=== PATIENT | male | born 1955 | race Caucasian/White ===

== ENCOUNTER → 2018-06-26 08:54 | Outpatient (CLI) | payer BC, SELFPAY ==
[2018-06-26 09:00] LABS: Bacteria 0 SEEN /hpf (None Seen); Mucous, Urine 0 SEEN /hpf (<or=2+); Red Blood Cells-Urine 0 SEEN /hpf (0-5); Squamous Epithelial Cells - UA 0 SEEN /hpf (0-5)
[2018-06-26 10:15] LABS: Color, Urine Yellow (Yellow); Glucose, Dipstick Normal (Normal); Ketone-Dipstick Negative (Negative); Leukocyte Esterase-Dipstick 25 /ul (Negative); Nitrite-Dipstick Negative (Negative); Occult Blood-Urine Negative /ul (Negative); Protein-Dipstick Negative (Negative); Urine Bilirubin Dipstick Negative (Negative); Urine Clarity Clear (Clear); Urine Urobilinogen 1 mg/dl (Normal)
[2018-06-26 10:18] LABS: Absolute Lymphocyte Count 1.53 X10^3/ul (0.83-4.51); Absolute Neutrophil Count 2.6 X10^3/uL (2.0-7.7); Basophil# 0.02 X10^3/uL; Basophil% 0.4 % (0-1); Eosinophil# 0.19 X10^3/uL; Eosinophils% 3.8 % (0-5); Hematocrit 42.1 % (40-54); Hemoglobin 14.4 g/dl (13.0-16.5); Lymphocyte # 1.53 X10^3/ul (4.0); Lymphocyte % 30.9 % (19-41); Mean Corp Hgb Conc 34.2 g/gl (32-36); Mean Corpuscular Hgb 31.9 pg (27.0-32.0); Mean Corpuscular Volume 93.3 fL (80-94); Mean Platelet Vol. 10.2 fl (6.2-12.0); Monocyte# 0.58 X10^3/uL; Monocyte% 11.7 % (0-10); Neutrophil # 2.62 X10^3/uL (2.7-7.7); Platelet Count 218 K/mm3 (150-450); RBC Distribution Width SD 43.4 fl (35.1-43.9); Red Blood Count 4.51 M/mm3 (4.6-6.2)
[2018-06-26 10:19] LABS: POSITIVE COUNT NO; POSITIVE DIFFERENTIAL NO; POSITIVE MORPHOLOGY NO
[2018-06-26 10:39] LABS: White Blood Cells 0-5 SEEN /hpf (0-5)
[2018-06-26 10:41] LABS: ALB/GLOB Ratio 1.4 RATIO (0.9-2.4); AST(SGOT) 18 U/L (15-37); Alanine Aminotransfer ALT/SGPT 25 U/L (16-61); Alkaline Phosphatase 46 U/L (45-117); Anion Gap 6 (5-15); BUN 24 mg/dL (7-18); BUN/Creat Ratio 27.2 RATIO (10-20); Calcium,Total 8.9 mg/dL (8.5-10.1); Chloride 106 mmol/L (98-107); Creatinine, Serum 0.88 mg/dL (0.70-1.30); EST Glomerular Filtration Rate 93 mL/min (>60); Est Glom Filt Rate - Afr Amer 113 mL/min (>60); Globulin 2.8 g/dL (2.2-4.2); Glucose 91 mg/dL (74-106); Potassium 4.9 mmol/L (3.5-5.1); Protein, Total 6.8 g/dL (6.4-8.2); Sodium Level 139 mmol/L (136-145)
--- OUTSIDE RECORDS SUMMARY | 2018-08-31 00:23 | XMS RPT_ITS ---
:1955 Author Organization [facility] Care Team Providers Name Role Phone Edwar Campbell Attending Unavailable Edwar Campbell Primary Care Unavailable PROBLEMS PROBLEMS No Problem Records FoundPROCEDURES PROCEDURES No Procedure Records FoundRESULTS RESULTS URINALYSIS, COMPLETE Collected: 06/26/2018 Status: F Source: [place] 8:59 AM [facility] [place] Order Comment: How was Urine Obtained? CLEAN CATCH TYPE CODE TESTS RESULT OUT OF RANGE REFERENCE UNITS LAB L400.3000 Yellow COLOR Normal Yellow LAB L400.3050 Clear Normal CLARITY Clear LAB L400.3200 Normal mg/dl Normal GLUCOSE, UR Normal LAB L400.3300 Negative mg/dL Normal BILIRUBIN URINE Negative LAB L400.3400 Negative mg/dl Normal KETONE UR Negative LAB L400.3465 1.002-1.030 Normal SP.GR. DIPSTX 1.010 LAB L400.3550 5.0 - 8.0 pH UR Normal 7.0 LAB L400.3600 Negative mg/dl PROT Normal DIPSTX Negative LAB L400.3700 Normal mg/dl High 1 UROBILI LAB L400.3750 Negative Normal NITRITE UR Negative LAB L400.3780 Negative /ul Normal OCCULT BLOOD-UR Negative LAB L400.3800 Negative /ul High LEUK 25 ESTERASE LAB L400.4050 0-5 /hpf WBC Normal 0-5 SEEN LAB L400.4100 0-5 /hpf 0 Normal RBC-UA SEEN LAB L400.4150 0-5 /hpf SQUAM 0 Normal EPI SEEN LAB L400.4300 None Seen /hpf 0 Normal BACTERIA SEEN LAB L400.4350 <or=2+ /hpf 0 Normal MUCUS, URINE SEEN Performed By: #### L400.0001 #### [facility] [address] [place], [place], [address] CBC W/DIFF, AUTOMATED Collected: 06/26/2018 Status: F Source: [place] 8:59 AM [facility] [place] TYPE CODE TESTS RESULT OUT OF RANGE REFERENCE UNITS LAB L100.1000 4.4-11.0 K/mm3 Normal WBC 5.0 LAB L100.1200 4.6-6.2 M/mm3 Low RBC 4.51 LAB L100.1300 13.0-16.5 g/dl Normal HGB 14.4 LAB L100.1400 40-54 % Normal HCT 42.1 LAB L100.1500 80-94 fL Normal MCV 93.3 LAB L100.1600 27.0-32.0 pg Normal MCH 31.9 LAB L100.1700 32-36 g/gl Normal MCHC 34.2 LAB L100.1810 11.6-14.6 % Normal RDW CV 13.0 LAB L100.1820 35.1-43.9 fl Normal RDW SD 43.4 LAB L100.1900 150-450 K/mm3 Normal PLT 218 LAB L100.2000 6.2-12.0 fl Normal MPV 10.2 LAB L100.2100 47-70 % Normal NEUT% 53.0 LAB L100.2200 19-41 % Normal LY% 30.9 LAB L100.2300 0-10 % High MONO% 11.7 LAB L100.2400 0-5 % Normal EO% 3.8 LAB L100.2500 0-1 % Normal BASO% 0.4 LAB L100.2550 0.0-0.9 % Normal IM GRAN % 0.200 Result Comment: IG% - Immature Granulocytes (promyelocytes, myelocytes and metamyelocytes) > 1% indicates that a LEFT SHIFT is Present. LAB L100.2620 2.0-7.7 X10 3/uL Normal Absolute Neut 2.6 LAB L100.2720 0.83-4.51 X10 3/ul Normal Absolute Lymph 1.53 Performed By: #### L100.0100, L500.4050 #### [facility] [address] [place], [place], [address] COMPREHENSIVE METABOLIC Collected: 06/26/2018 Status: F Source: [facility] 8:59 AM [facility] [place] TYPE CODE TESTS RESULT OUT OF RANGE REFERENCE UNITS LAB L501.0100 74-106 mg/dL Normal GLU 91 Result Comment: Please note revised GLUCOSE reference range effective 2017. LAB L501.1000 7-18 mg/dL High BUN 24 LAB L501.1100 0.70-1.30 mg/dL Normal CREAT,SERUM 0.88 Result Comment: The validity of the calculated GFR AND GFRAA in patients over 70 years has not been determined. Clinical correlation is essential. LAB L501.1110 >60 mL/min Normal EST GFR 93 Result Comment: Non- GFR Calc LAB L501.1115 >60 mL/min Normal EST GFR - AA 113 Result Comment: GFR Calc LAB L501.1300 10-20 RATIO High BUN/CRE 27.2 LAB L501.1500 6.4-8.2 g/dL T Normal PROT 6.8 LAB L501.1800 3.2-5.0 g/dL Normal ALB 4.0 LAB L501.1950 2.2-4.2 g/dL Normal GLOB 2.8 LAB L501.2000 0.9-2.4 RATIO Normal A/G 1.4 LAB L501.2200 8.5-10.1 mg/dL CA Normal 8.9 LAB L501.4100 15-37 U/L Normal AST 18 LAB L501.4305 45-117 U/L Normal ALK P 46 LAB L501.4405 16-61 U/L Normal ALT 25 LAB L501.4600 0.20-1.00 mg/dL T Normal BILI 0.40 LAB L501.5300 136-145 mmol/L NA Normal 139 LAB L501.5600 3.5-5.1 mmol/L K Normal 4.9 LAB L501.5900 98-107 mmol/L CL Normal 106 LAB L501.6100 21.0-32.0 mmol/L Normal CO2 27.0 LAB L501.6200 5-15 Normal GAP 6 Performed By: #### L100.0100, L500.4050 #### [facility] [address] [place], [address] ALLERGIES ALLERGIES No Allergies Records FoundENCOUNTERS ENCOUNTERS ADMIT/DISCHARGE ACCOUNT ADMITTING ENCOUNTER LOCATION SOURCE NUMBER CLASS 06/26/2018 [id number] Ambulatory [place] [address] [facility] ing:MFPLAB Repository PAYERS PAYERS ENCOUNTER GUARANTOR PAYER SUBSCRIBER SOURCE 06/26/2018 JOSEPH [id number] Primary JOSEPH KAUROB: Efren PEREZ Insurance:[place] [id number] Number: [facility] [id number]: [phone]) [id number] Repository [phone] () Date:[id number] [id number] [place] [id number]: 06/26/2018 Secondary NOT GIVENUNK Efren Insurance:SELF PAY [facility] Number: Effective Repository Date:2018-06-26
== END ==
PROVIDERS: Family Provider Family Medicine; PCP Family Medicine; Visit Provider Family Medicine
DX: Z00.00 Encounter for general adult medical examination without abnormal findings (principal)
CPT/HCPCS: 36415; 80053; 81001; 85025

== ENCOUNTER → 2020-02-23 14:34 | Outpatient (CLI) | payer BC, SELFPAY ==
[2020-02-23 17:53] LABS: Absolute Neutrophil Count 3.8 X10^3/uL (2.0-7.7); Basophil# 0.04 X10^3/uL; Basophil% 0.6 % (0-1); Eosinophil# 0.18 X10^3/uL; Eosinophils% 2.9 % (0-5); Hematocrit 40.5 % (40-54); Hemoglobin 13.5 g/dL (13.0-16.5); Lymphocyte % 25.5 % (19-41); Mean Corp Hgb Conc 33.3 g/dL (32-36); Mean Corpuscular Hgb 31.5 pg (27.0-32.0); Mean Corpuscular Volume 94.6 fL (80-94); Mean Platelet Vol. 9.6 fl (6.2-12.0); Monocyte# 0.66 X10^3/uL; Monocyte% 10.5 % (0-10); NRBC Flagged by Analyzer 0 % (0-5); Neutrophil # 3.78 X10^3/uL (2.7-7.7); Neutrophil % 60.2 % (47-70); Platelet Count 233 K/mm3 (150-450); RBC Distribution Width CV 13.2 % (11.6-14.6); RBC Distribution Width SD 45.9 fl (35.1-43.9); Red Blood Count 4.28 M/mm3 (4.6-6.2); White Blood Count 6.3 K/mm3 (4.4-11.0)
[2020-02-23 18:29] LABS: ALB/GLOB Ratio 1.2 RATIO (0.9-2.4); AST(SGOT) 20 U/L (15-37); Alanine Aminotransfer ALT/SGPT 26 U/L (16-61); Albumin, Serum 3.8 g/dL (3.2-5.0); Alkaline Phosphatase 41 U/L (45-117); Anion Gap 8 (5-15); BUN 19 mg/dL (7-18); BUN/Creat Ratio 20.3 RATIO (10-20); Calcium,Total 8.8 mg/dL (8.5-10.1); Chloride 106 mmol/L (98-107); Cholesterol 239 mg/dL (200); Creatinine, Serum 0.93 mg/dL (0.70-1.30); EST Glomerular Filtration Rate 87 mL/min (>60); Est Glom Filt Rate - Afr Amer 105 mL/min (>60); Globulin 3.2 g/dL (2.2-4.2); Glucose 89 mg/dL (74-106); High Density Lipoprotein 87 mg/dL; PSA,Total - Annual Screen 1.54 ng/mL (0.00-4.00); Potassium 3.9 mmol/L (3.5-5.1); Sodium Level 140 mmol/L (136-145); Triglycerides 69 mg/dL; Very Low Density Lipoprotein 14 mg/dL (5-40)
== END ==
PROVIDERS: PCP Family Medicine; Referring Provider Family Medicine; Visit Provider Family Medicine
DX: Z00.00 Encounter for general adult medical examination without abnormal findings (principal); Z12.5 Encounter for screening for malignant neoplasm of prostate
CPT/HCPCS: 36415; 80053; 80061; 84153; 85025; G0103

== ENCOUNTER → 2020-03-02 15:38 | Outpatient (CLI) | payer BC, SELFPAY ==
--- NOTE | 2020-03-02 15:42 | CT_ITS ---
STUDY: LOW DOSE CT LUNG CANCER SCREENING REASON FOR EXAM: Male, 64 years old. An cancer screening. 40 pack-year history. RADIATION DOSAGE (If Supplied By Facility): CTDIvol = ( 2.55 ) mGy, DLP = ( 85.19 ) mGycm TECHNIQUE: No contrast was administered. Low dose technique was utilized (average mAS-38 and kVp 120). 1.25 mm axial source images with a slice interval of 1.25-mm were reconstructed in lung windows. 2.5 mm axial source images with a slice interval of 2.5-mm were reconstructed in lung windows. 5.0 mm axial source images with a slice interval of 5.0-mm were reconstructed in soft tissue windows. Nodule measured using lung windows on PACS and/or independent workstation with automated measurement of minimum and maximum diameter. Nodule measurement reported as average diameter rounded to the nearest whole number. Growth is defined as an increase ins size of greater than 1.5 mm. COMPARISON: None. NODULES: Total lung nodules (excluding granulomas): 0 Emphysema: None Endobronchial lesion: None Aorta: Minimal atherosclerotic changes of the aortic arch without aneurysm. Coronary arteries: Mild coronary artery calcifications. Heart: Normal Pulmonary artery: Normal Mediastinal nodes: None Other chest and abdominal findings: Minimal degenerative changes are lower thoracic spine. CT/Low Dose CT Lung Screening IMPRESSION: Lung-RADS category 1 - Continue annual screening with LDCT in 12 months. IMPORTANT NOTES FOR USE: ACR Lung-RADS Version 1.0 Assessment Categories Release Date: October 06, 2013 Category: Coded 0-4 bases on nodule(s) with highest degree of suspicion. Negative screen is defined as categories 1 and 2; a positive screen is defined as categories 3 and 4. Category 3 and 4A nodules that are unchanged on interval CT should be coded as category 2, and individuals returned to screening in 12 months. Category 4X: Category 3 or 4 nodules with additional imaging findings that increase the suspicion of lung cancer, such as spiculation, GGN that doubles in size in 1 year, enlarged lymph notes, etc. Category Modifiers: S (significant finding unrelated to lung cancer) and C (prior history of treated lung cancer) may be added to the 0-4 Lung-RADS Electronically Signed: Lew Mcclain DO at 22:56 EDT Tel [phone], Service support ,
== END ==
PROVIDERS: PCP Family Medicine; Referring Provider Family Medicine; Visit Provider Family Medicine
DX: Z12.2 Encounter for screening for malignant neoplasm of respiratory organs (principal); Z87.891 Personal history of nicotine dependence
CPT/HCPCS: G0297

== ENCOUNTER → 2020-04-20 06:24 | Outpatient (CLI) | payer BC, SELFPAY ==
[2020-04-01 15:04] VITALS: BMI 26.7
--- NOTE | 2020-04-20 08:06 | STRESSREP ---
Stress Test Report Date: Procedure: Exercise tolerance test/imaging study Indications: Family history of premature CAD/sudden cardiac Consent: Per the patient Procedure: The patient exercised on a Jeffrey protocol for 10 minutes and 30 seconds completing Stage III and 1 minute and 30 seconds of Stage IV achieving a peak heart rate of 141 bpm (89% predicted maximal heart rate) with a peak blood pressure 152/80 mmHg and a peak MET capacity of 12 METs. The baseline ECG demonstrated sinus bradycardia. The peak exercise ECG demonstrated no obvious ECG changes. There were no cardiac dysrhythmias pretest, during exercise, or recovery. The functional capacity was considered good. There was no complaint of chest discomfort during exercise or recovery. The examination was discontinued secondary to dyspnea. Impression: 1. Technically adequate (percent predicted maximal heart rate greater than 85%) exercise tolerance test 2. Peak exercise ECG with no obvious ECG changes 3. There were no cardiac dysrhythmias pretest, during exercise, or recovery 4. Nuclear images pending Myocardial perfusion imaging study: Technique: The patient was injected with 11.2 mCi of technetium 99m Cardiolite and subsequently rest SPECT Cardiolite nuclear imaging was obtained in the horizontal long, vertical long, and short axis views. The patient exercised on a Jeffrey protocol for 10 minutes and 30 seconds completing Stage III and 1 minute and 30 seconds of Stage IV achieving a peak heart rate of 141 bpm (89% predicted maximal heart rate) with a peak blood pressure 152/80 mmHg and a peak MET capacity of 12 METs. The patient was injected with 33.7 mCi of technetium 99m Cardiolite and subsequently stress SPECT Cardiolite nuclear imaging was obtained in the horizontal long, vertical long, and short axis views. A gated Cardiolite study at peak stress was obtained. Interpretation: Rest and stress SPECT Cardiolite nuclear imaging status post realignment, normalization, and attenuation correction, demonstrates the appearance of relative uniform tracer uptake and myocardial perfusion appearing within normal limits. There is end systolic thickening and brightening. The gated Cardiolite study demonstrates myocardial thickening and inward wall motion. The reported LVEF is 60%. Impression: 1. Rest and stress SPECT Cardiolite nuclear imaging demonstrate relative uniform tracer uptake and myocardial perfusion appearing within normal limits. 2. The gated Cardiolite study reports an LVEF of 60%. This note was generated with [employer] software. It may contain incorrect words, spelling, and punctuation that were not noted in checking the note before signing.
== END ==
PROVIDERS: PCP Family Medicine; Referring Provider Internal Medicine Cardiovascular Disease; Visit Provider Internal Medicine Cardiovascular Disease
DX: R94.31 Abnormal electrocardiogram [ECG] [EKG] (principal); E78.5 Hyperlipidemia, unspecified; Z82.49 Family history of ischemic heart disease and other diseases of the circulatory system
CPT/HCPCS: 78452; 93017; A9500; A4216

== ENCOUNTER → 2022-03-01 | Outpatient (CLI) | payer BC, SELFPAY ==
[2022-03-01 12:41] LABS: Absolute Lymphocyte Count 1.17 X10^3/uL (0.83-4.51); Absolute Neutrophil Count 2.6 X10^3/uL (2.0-7.7); Basophil# 0.03 X10^3/uL; Basophil% 0.7 % (0-1); Eosinophil# 0.09 X10^3/uL; Hematocrit 42.6 % (40-54); Hemoglobin 14.5 g/dL (13.0-16.5); Lymphocyte # 1.17 X10^3/ul (0.83-4.51); Lymphocyte % 26.2 % (19-41); Mean Corpuscular Hgb 32.4 pg (27.0-32.0); Mean Corpuscular Volume 95.1 fL (80-94); Monocyte# 0.55 X10^3/uL; Monocyte% 12.3 % (0-10); NRBC Flagged by Analyzer 0 % (0-5); Neutrophil # 2.61 X10^3/uL (2.7-7.7); Neutrophil % 58.4 % (47-70); Platelet Count 210 K/mm3 (150-450); RBC Distribution Width CV 13.5 % (11.6-14.6); RBC Distribution Width SD 47.7 fl (35.1-43.9); Red Blood Count 4.48 M/mm3 (4.6-6.2); White Blood Count 4.5 K/mm3 (4.4-11.0)
[2022-03-01 13:09] LABS: ALB/GLOB Ratio 1.1 RATIO (0.9-2.4); AST(SGOT) 25 U/L (15-37); Alanine Aminotransfer ALT/SGPT 33 U/L (16-61); Albumin, Serum 3.7 g/dL (3.2-5.0); Alkaline Phosphatase 41 U/L (45-117); Anion Gap 7 (5-15); BUN 24 mg/dL (7-18); BUN/Creat Ratio 24.5 RATIO (10-20); Calcium,Total 8.8 mg/dL (8.5-10.1); Chloride 107 mmol/L (98-107); Cholesterol 238 mg/dL (200); Creatinine, Serum 0.98 mg/dL (0.70-1.30); EST Glomerular Filtration Rate 82 mL/min (>60); Est Glom Filt Rate - Afr Amer 99 mL/min (>60); Globulin 3.5 g/dL (2.2-4.2); Glucose 96 mg/dL (74-106); High Density Lipoprotein 71 mg/dL; PSA,Total - Annual Screen 1.22 ng/mL (0.00-4.00); Potassium 4.3 mmol/L (3.5-5.1); Protein, Total 7.2 g/dL (6.4-8.2); Sodium Level 140 mmol/L (136-145); Triglycerides 72 mg/dL; Very Low Density Lipoprotein 14 mg/dL (5-40)
== END | disposition home or self-care (01) ==
PROVIDERS: PCP Family Medicine; Referring Provider Family Medicine; Visit Provider Nurse Practitioner Family
DX: Z13.1 Encounter for screening for diabetes mellitus (principal); Z13.220 Encounter for screening for lipoid disorders; Z80.9 Family history of malignant neoplasm, unspecified; Z12.5 Encounter for screening for malignant neoplasm of prostate
CPT/HCPCS: 36415; 80053; 80061; 84153; 85025; G0103

== ENCOUNTER → 2023-08-17 | Outpatient (CLI) | payer BC, SELFPAY ==
--- OUTSIDE RECORDS SUMMARY | 2023-08-17 15:26 | XMS RPT_ITS | CCD ---
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 Name Role Phone ALEJO OSBORNE Unavailable Unavailable ALEJO OSBORNE Unavailable Unavailable WOOD FIGUEROA (VAUGHN) Unavailable Unavailable Problems Problem Classification Problem Date Documented Da te Episodic/Chronic Unclassified (1 source) Encounter for screening for malignant neoplasm of colon; Translations: [Encounter for screening for malignant neoplasm of colon] Onset: 03-29-2017 Episodic Results Test Name Value Interpretation Reference Range Facil ity Encounters Encounter Date Encounter Type Care Provider Facility Start: 03-29-2017 End: 03-29-2017 Ambulatory ALEJO OSBORNE [facility] Summary Purpose Family History No Family History Records Found Advance Directives No Advanced Directives Records Found Additional Source Comments (unrecognized sect ion and content) No Status Records Found INFORMATION SOURCE (unrecogn ized section and content) FOR RECORDS PERTAINING TO PATIENTS WHO ARE OR HAVE BEEN ENROLLED IN A CHEMICAL DEPENDENCY/SUBSTANCEABUSE PROGRAM, SOME INFORMATION MAY BE OMITTED. This clinical summary was aggregated from multiple sources. Caution should be exercised in using it in the provision of clinical care. This summary normalizes information from multiple sources, and as a consequence, information in this document may materially change the coding, format and clinical context of patient data. In addition, data may be omitted in some cases. CLINICAL DECISIONS SHOULD BE BASED ON THE PRIMARY CLINICAL RECORDS. [facility]. provides no warranty or guarantee of the accuracy or completeness of information in this document.
[2023-08-17 17:37] LABS: Absolute Lymphocyte Count 1.64 X10^3/uL (0.83-4.51); Absolute Neutrophil Count 3.1 X10^3/uL (2.0-7.7); Basophil# 0.03 X10^3/uL; Basophil% 0.6 % (0-1); Eosinophil# 0.11 X10^3/uL; Hematocrit 42.3 % (40-54); Hemoglobin 13.8 g/dL (13.0-16.5); Lymphocyte # 1.64 X10^3/ul (0.83-4.51); Lymphocyte % 30.5 % (19-41); Mean Corp Hgb Conc 32.6 g/dL (32-36); Mean Corpuscular Hgb 31.2 pg (27.0-32.0); Mean Corpuscular Volume 95.5 fL (80-94); Monocyte# 0.52 X10^3/uL; Monocyte% 9.7 % (0-10); NRBC Flagged by Analyzer 0 % (0-5); Neutrophil # 3.07 X10^3/uL (2.7-7.7); Platelet Count 224 K/mm3 (150-450); RBC Distribution Width CV 12.8 % (11.6-14.6); RBC Distribution Width SD 44.6 fl (35.1-43.9); Red Blood Count 4.43 M/mm3 (4.6-6.2); White Blood Count 5.4 K/mm3 (4.4-11.0)
[2023-08-17 18:22] LABS: ALB/GLOB Ratio 1.3 RATIO (0.9-2.4); AST(SGOT) 25 U/L (15-37); Alanine Aminotransfer ALT/SGPT 28 U/L (16-61); Albumin, Serum 4.1 g/dL (3.2-5.0); Alkaline Phosphatase 44 U/L (45-117); Anion Gap 7 (5-15); BUN 20 mg/dL (7-18); BUN/Creat Ratio 21.4 RATIO (10-20); Calcium,Total 9.2 mg/dL (8.5-10.1); Chloride 106 mmol/L (98-107); Cholesterol 225 mg/dL (200); Creatinine, Serum 0.93 mg/dL (0.70-1.30); EST Glomerular Filtration Rate 86 mL/min (>60); Est Glom Filt Rate - Afr Amer 104 mL/min (>60); Globulin 3.2 g/dL (2.2-4.2); Glucose 91 mg/dL (74-106); High Density Lipoprotein 73 mg/dL; PSA,Total - Annual Screen 2.03 ng/mL (0.00-4.00); Potassium 3.9 mmol/L (3.5-5.1); Protein, Total 7.3 g/dL (6.4-8.2); Sodium Level 140 mmol/L (136-145); Triglycerides 78 mg/dL; Very Low Density Lipoprotein 16 mg/dL (5-40)
== END | disposition home or self-care (01) ==
LOC: MFPLAB 14:27
PROVIDERS: PCP Family Medicine; Visit Provider Family Medicine
DX: Z13.220 Encounter for screening for lipoid disorders (principal); Z12.5 Encounter for screening for malignant neoplasm of prostate
CPT/HCPCS: 36415; 80053; 80061; 84153; 85025; G0103

== ENCOUNTER → 2025-02-19 | Outpatient (CLI) | payer BC, SELFPAY ==
--- OUTSIDE RECORDS SUMMARY | 2025-02-19 06:43 | XMS RPT_ITS | CCD ---
Author Organization [facility] Care Team Providers Care Home [facility] Supervisor Name Role Phone LUCERO SARABIA Unavailable Unavailable LUCERO SARABIA Unavailable Unavailable WOOD FIGUEROA (VAUGHN) Unavailable Unavailable Edwar Campbell Attending Unavailable Edwar Campbell Primary Care Unavailable Problems Problem Classification Problem Date Documented Da te Episodic/Chronic Residual codes; unclassified (2 sources) Family history of cardiac disorder; Translations: [Family history of ischemic heart disease and other diseases of the circulatory system] 03-30-2020 Episodic Unclassified (2 sources) Encounter for screening for malignant neoplasm of colon; Translations: [Encounter for screening for lipoid disorders] Onset: 03-29-2017 Episodic Results Test Name Value Interpretation Reference Range Facility Absolute lymphocyte countOrd ered By: Edwar Campbell on 08-17-2023 Lymphocytes Auto (Unsp spec) [#/Vol] 1.64 10*3/uL 0.83-4.51 [facility] Automated lymphocyte count a s percentage of total leukocytesOrdered By: Edwar Campbell on 08-17-2023 Lymphocytes/100 WBC Auto (Unsp spec) 30.5 % 19-41 [facility] Basophil percentageOrdered B y: Edwar Campbell on 08-17-2023 Basophils/100 WBC (Bld) 0.6 % 0-1 [facility] Bilirubin [Mass/Vol] 0.50 mg/dL 0.20-1.00 [facility] Comment on above: For patients on eltr ombopag therapy, use of Dimension [place] TBIL is not recommended. Chloride [Moles/Vol] 106 mmol/L 98-107 [facility] Cholesterol [Mass/Vol] 225 mg/dL <200 [facility] Comment on above: <200 mg/dL Desirable 200-240 mg/dL Borderline >240 mg/dL High Risk Eosinophils/100 WBC (Bld) 2.0 % 0-5 [facility] Glucose [Mass/Vol] 91 mg/dL 74-106 [facility] Hemoglobin (Bld) [Mass/Vol] 13.8 g/dL 13.0-16.5 [facility] Monocytes/100 WBC (Bld) 9.7 % 0-10 [facility] Neutrophils (Bld) [#/Vol] 3.1 10*3/uL 2.0-7.7 [facility] Neutrophils/100 WBC (Bld) 57.0 % 47-70 [facility] Potassium [Moles/Vol] 3.9 mmol/L 3.5-5.1 [facility] Protein [Mass/Vol] 7.3 g/dL 6.4-8.2 [facility] Sodium [Moles/Vol] 140 mmol/L 136-145 [facility] Triglyceride [Mass/Vol] 78 mg/dL <199 [facility] Comment on above: The drugs N-Acetylcy steine and Metamizole may falsely depress this assay.Serum Triglycerides Reference Interval Normal <150 mg/dL Borderline high 150 - 199 mg/dL High 200 - 499 mg/dL Very High > or = 500 mg/dL WBC (Bld) [#/Vol] 5.4 10*3/uL 4.4-11.0 [facility] CBC W/Diff, Automatedon 03-0 -2023 Absolute Lymph 1.64 X10 3/uL Normal 0.83-4.51 [facility] Comment on above: Order Comment: Order Date: 08/17/23 Order Info: [id number] - CBCD Performed By: #### L 500.4050, L501.9910, L500.4100, L100.0100 #### [facility] [address] [place], [place], [id number] Absolute Neut 3.1 X10 3/uL Normal 2.0-7.7 [facility] Comment on above: Order Comment: Order Date: 08/17/23 Order Info: [id number] - CBCD Performed By: #### L 500.4050, L501.9910, L500.4100, L100.0100 #### [facility] [address] [place], [address] Basophils/100 WBC (Bld) 0.6 % Normal 0-1 [facility] Comment on above: Order Comment: Order Date: 08/17/23 Order Info: 0184-1 - CBCD Performed By: #### L 500.4050, L501.9910, L500.4100, L100.0100 #### [facility] [address] [place], [address] Eosinophils/100 WBC (Bld) 2.0 % Normal 0-5 [facility] Comment on above: Order Comment: Order Date: 08/17/23 Order Info: [id number]- - CBCD Performed By: #### L 500.4050, L501.9910, L500.4100, L100.0100 #### [facility] [address] [place], [address] Erythrocyte distribution width (RBC) [Ratio] 12.8 % Normal 11.6-14.6 [facility] Comment on above: Order Comment: Order Date: 08/17/23 Order Info: 0184-1 - CBCD Performed By: #### L 500.4050, L501.9910, L500.4100, L100.0100 #### [facility] [address] [place], [address] Hematocrit (Bld) [Volume fraction] 42.3 % Normal 40-54 [facility] Comment on above: Order Comment: Order Date: 08/17/23 Order Info: 0184-1 - CBCD Performed By: #### L 500.4050, L501.9910, L500.4100, L100.0100 #### [facility] [address] [place], [address] Hemoglobin (Bld) [Mass/Vol] 13.8 g/dL Normal 13.0-16.5 [facility] Comment on above: Order Comment: Order Date: 08/17/23 Order Info: [id number]- - CBCD Performed By: #### L 500.4050, L501.9910, L500.4100, L100.0100 #### [facility] [address] [place], [address] IG% 0.200 Normal 0.0-0.9 [facility] Comment on above: Order Comment: Order Date: 08/17/23 Order Info: 018- - CBCD Result Comment: IG% - Immature Granulocytes (promyelocytes, myelocytes and metamyelocytes) > 1% indicates that a LEFT SHIFT is Present. Performed By: #### L 500.4050, L501.9910, L500.4100, L100.0100 #### [facility] [address] [place], [address] Lymphocytes/100 WBC (Bld) 30.5 % Normal 19-41 [facility] Comment on above: Order Comment: Order Date: 08/17/23 Order Info: [id number] - CBCD Performed By: #### L 500.4050, L501.9910, L500.4100, L100.0100 #### [facility] [address] [place], [address] MCH (RBC) [Entitic mass] 31.2 pg Normal 27.0-32.0 [facility] Comment on above: Order Comment: Order Date: 08/17/23 Order Info: [id number]- - CBCD Performed By: #### L 500.4050, L501.9910, L500.4100, L100.0100 #### [facility] [address] [place], [address] MCHC (RBC) [Mass/Vol] 32.6 g/dL Normal 32-36 [facility] Comment on above: Order Comment: Order Date: 08/17/23 Order Info: [id number]- - CBCD Performed By: #### L 500.4050, L501.9910, L500.4100, L100.0100 #### [facility] [address] [place], [address] MCV (RBC) [Entitic vol] 95.5 fL High 80-94 [facility] Comment on above: Order Comment: Order Date: 08/17/23 Order Info: 0184-1 - CBCD Performed By: #### L 500.4050, L501.9910, L500.4100, L100.0100 #### [facility] [address] [place], [address] Monocytes/100 WBC (Bld) 9.7 % Normal 0-10 [facility] Comment on above: Order Comment: Order Date: 08/17/23 Order Info: 0184-1 - CBCD Performed By: #### L 500.4050, L501.9910, L500.4100, L100.0100 #### [facility] [address] [place], [address] Neutrophils/100 WBC (Bld) 57.0 % Normal 47-70 [facility] Comment on above: Order Comment: Order Date: 08/17/23 Order Info: 0184-1 - CBCD Performed By: #### L 500.4050, L501.9910, L500.4100, L100.0100 #### [facility] [address] [place], [address] Nucleated RBC (Bld) [#/Vol] 0 10*3/uL Normal 0-5 [facility] Comment on above: Order Comment: Order Date: 08/17/23 Order Info: 0184-1 - CBCD Performed By: #### L 500.4050, L501.9910, L500.4100, L100.0100 #### [facility] [address] [place], [address] Platelet mean volume (Bld) [Entitic vol] 10.0 fL Normal 6.2-12.0 [facility] Comment on above: Order Comment: Order Date: 08/17/23 Order Info: 0184-1 - CBCD Performed By: #### L 500.4050, L501.9910, L500.4100, L100.0100 #### [facility] [address] [place], [address] Platelets (Bld) [#/Vol] 224 10*3/uL Normal 150-450 [facility] Comment on above: Order Comment: Order Date: 08/17/23 Order Info: 0184-1 - CBCD Performed By: #### L 500.4050, L501.9910, L500.4100, L100.0100 #### [facility] [address] [place], [address] RBC (Bld) [#/Vol] 4.43 10*6/uL Low 4.6-6.2 [facility] Comment on above: Order Comment: Order Date: 08/17/23 Order Info: 0184-1 - CBCD Performed By: #### L 500.4050, L501.9910, L500.4100, L100.0100 #### [facility] [address] [place], [address] RDW SD 44.6 fl High 35.1-43.9 [facility] Comment on above: Order Comment: Order Date: 08/17/23 Order Info: 0184- - CBCD Performed By: #### L 500.4050, L501.9910, L500.4100, L100.0100 #### [facility] [address] [place], [address] WBC (Bld) [#/Vol] 5.4 10*3/uL Normal 4.4-11.0 [facility] Comment on above: Order Comment: Order Date: 08/17/23 Order Info: 0184-1 - CBCD Performed By: #### L 500.4050, L501.9910, L500.4100, L100.0100 #### [facility] [address] [place], [address] Comprehensive Metabolic Prof ilon 08-17-2023 Albumin [Mass/Vol] 4.1 g/dL Normal 3.2-5.0 [facility] Comment on above: Order Comment: Order Date: 08/17/23 Order Info: 86-1 - CMP Order Info: [id number] - LIPID Order Info: [id number] - PSA Performed By: #### L 500.4050, L501.9910, L500.4100, L100.0100 #### [facility] [address] [place], [address] Albumin/Globulin [Mass ratio] 1.3 {ratio} Normal 0.9-2.4 [facility] Comment on above: Order Comment: Order Date: 08/17/23 Order Info: [id number] - CMP Order Info: - LIPID Order Info: [id number] - PSA Performed By: #### L 500.4050, L501.9910, L500.4100, L100.0100 #### [facility] [address] [place], [address] ALK P 44 U/L Low 45-117 [facility] Comment on above: Order Comment: Order Date: 08/17/23 Order Info: 1 - CMP Order Info: [id number] - LIPID Order Info: [id number] - PSA Performed By: #### L 500.4050, L501.9910, L500.4100, L100.0100 #### [facility] [address] [place], [address] ALT [Catalytic activity/Vol] 28 U/L Normal 16-61 [facility] Comment on above: Order Comment: Order Date: 08/17/23 Order Info: 86-1 - CMP Order Info: [id number] - LIPID Order Info: [id number] - PSA Performed By: #### L 500.4050, L501.9910, L500.4100, L100.0100 #### [facility] [address] [place], [address] AST [Catalytic activity/Vol] 25 U/L Normal 15-37 [facility] Comment on above: Order Comment: Order Date: 08/17/23 Order Info: 785- - CMP Order Info: - LIPID Order Info: [id number] - PSA Performed By: #### L 500.4050, L501.9910, L500.4100, L100.0100 #### [facility] [address] [place], [address] Bilirubin [Mass/Vol] 0.50 mg/dL Normal 0.20-1.00 [facility] Comment on above: Order Comment: Order Date: 08/17/23 Order Info: [id number] - CMP Order Info: - LIPID Order Info: [id number] - PSA Result Comment: For patients on eltrombopag therapy, use of Dimension [place] TBIL is not recommended. Performed By: #### L 500.4050, L501.9910, L500.4100, L100.0100 #### [facility] [address] [place], [address] BUN/CRE 21.4 RATIO High 10-20 [facility] Comment on above: Order Comment: Order Date: 08/17/23 Order Info: [id number] - CMP Order Info: - LIPID Order Info: [id number] - PSA Performed By: #### L 500.4050, L501.9910, L500.4100, L100.0100 #### [facility] [address] [place], [address] CA,Total 9.2 mg/dL Normal 8.5-10.1 [facility] Comment on above: Order Comment: Order Date: 08/17/23 Order Info: [id number] - CMP Order Info: - LIPID Order Info: [id number] - PSA Performed By: #### L 500.4050, L501.9910, L500.4100, L100.0100 #### [facility] [address] [place], [address] Chloride [Moles/Vol] 106 mmol/L Normal 98-107 [facility] Comment on above: Order Comment: Order Date: 08/17/23 Order Info: 785-1 - CMP Order Info: [id number] - LIPID Order Info: [id number] - PSA Performed By: #### L 500.4050, L501.9910, L500.4100, L100.0100 #### [facility] [address] [place], [address] CO2 [Moles/Vol] 27.0 mmol/L Normal 21.0-32.0 [facility] Comment on above: Order Comment: Order Date: 08/17/23 Order Info: [id number] - CMP Order Info: - LIPID Order Info: [id number] - PSA Performed By: #### L 500.4050, L501.9910, L500.4100, L100.0100 #### [facility] [address] [place], [address] Creatinine [Mass/Vol] 0.93 mg/dL Normal 0.70-1.30 [facility] Comment on above: Order Comment: Order Date: 08/17/23 Order Info: [id number] - CMP Order Info: - LIPID Order Info: [id number] - PSA Result Comment: The validity of the calculated GFR GFRAA in patients over 70 years has not been determined. Clinical correlation is essential. Performed By: #### L 500.4050, L501.9910, L500.4100, L100.0100 #### [facility] [address] [place], [address] EST GFR - AA 104 mL/min Normal >60 [facility] Comment on above: Order Comment: Order Date: 08/17/23 Order Info: 785- - CMP Order Info: - LIPID Order Info: [id number] - PSA Result Comment: Afri can Colombian GFR Calc Performed By: #### L 500.4050, L501.9910, L500.4100, L100.0100 #### [facility] [address] [place], [address] GAP 7 Normal 5-15 [facility] Comment on above: Order Comment: Order Date: 08/17/23 Order Info: 07- - CMP Order Info: [id number] - LIPID Order Info: [id number] - PSA Performed By: #### L 500.4050, L501.9910, L500.4100, L100.0100 #### [facility] [address] [place], [address] GFR/1.73 sq M.predicted among non-blacks MDRD (S/P/Bld) [Vol rate/Area] 86 mL/min/{1.73_m2} Normal >60 [facility] Comment on above: Order Comment: Order Date: 08/17/23 Order Info: 0786 - CMP Order Info: [id number] - LIPID Order Info: [id number] - PSA Result Comment: Non- GFR Calc Performed By: #### L 500.4050, L501.9910, L500.4100, L100.0100 #### [facility] [address] [place], [address] Globulin (S) [Mass/Vol] 3.2 g/dL Normal 2.2-4.2 [facility] Comment on above: Order Comment: Order Date: 08/17/23 Order Info: 0786 - CMP Order Info: [id number] - LIPID Order Info: [id number] - PSA Performed By: #### L 500.4050, L501.9910, L500.4100, L100.0100 #### [facility] [address] [place], [address] Glucose [Mass/Vol] 91 mg/dL Normal 74-106 [facility] Comment on above: Order Comment: Order Date: 08/17/23 Order Info: [id number] - CMP Order Info: [id number] - LIPID Order Info: [id number] - PSA Performed By: #### L 500.4050, L501.9910, L500.4100, L100.0100 #### [facility] [address] [place], [address] Potassium [Moles/Vol] 3.9 mmol/L Normal 3.5-5.1 [facility] Comment on above: Order Comment: Order Date: 08/17/23 Order Info: [id number] - CMP Order Info: [id number] - LIPID Order Info: [id number] - PSA Performed By: #### L 500.4050, L501.9910, L500.4100, L100.0100 #### [facility] [address] [place], [address] Sodium [Moles/Vol] 140 mmol/L Normal 136-145 [facility] Comment on above: Order Comment: Order Date: 08/17/23 Order Info: [id number] - CMP Order Info: [id number] - LIPID Order Info: [id number] - PSA Performed By: #### L 500.4050, L501.9910, L500.4100, L100.0100 #### [facility] [address] [place], [address] T PROT 7.3 g/dL Normal 6.4-8.2 [facility] Comment on above: Order Comment: Order Date: 08/17/23 Order Info: [id number] - CMP Order Info: [id number] - LIPID Order Info: [id number] - PSA Performed By: #### L 500.4050, L501.9910, L500.4100, L100.0100 #### [facility] [address] [place], [address] Urea nitrogen [Mass/Vol] 20 mg/dL High 7-18 [facility] Comment on above: Order Comment: Order Date: 08/17/23 Order Info: [id number] - CMP Order Info: [id number] - LIPID Order Info: [id number] - PSA Performed By: #### L 500.4050, L501.9910, L500.4100, L100.0100 #### [facility] [address] [place], [address] Determination of erythrocyte mean corpuscular volume (MCV)Ordered By: Edwar Campbell on 08-17-2023 MCV (RBC) [Entitic vol] 95.5 fL 80-94 [facility] Erythrocyte distribution wid th ratioOrdered By: Edwar Campbell on 08-17-2023 Erythrocyte distribution width (RBC) [Ratio] 12.8 % 11.6-14.6 [facility] Erythrocyte distribution wid th standard deviationOrdered By: Edwar Campbell on 08-17-2023 Erythrocyte distribution width (RBC) [Entitic vol] 44.6 fL 35.1-43.9 [facility] Hematocrit Auto (Bld) [Volum e fraction]Ordered By: Edwar Campbell on 08-17-2023 Hematocrit (Bld) [Volume fraction] 42.3 % 40-54 [facility] Immature granulocytes/100 WB C Auto (Bld)Ordered By: Edwar Campbell on 08-17-2023 Immature granulocytes/100 WBC (Bld) 0.200 % 0.0-0.9 [facility] Comment on above: IG% - Immature Granu locytes (promyelocytes, myelocytes and metamyelocytes) > 1% indicates that a LEFT SHIFT is Present. Laboratory - Chemistry and C hemistry - challengeOrdered By: Edwar Campbell on 08-17-2023 Albumin/Globulin [Mass ratio] 1.3 {ratio} 0.9-2.4 [facility] ALP [Catalytic activity/Vol] 44 U/L 45-117 [facility] ALT [Catalytic activity/Vol] 28 U/L 16-61 [facility] Cholesterol in HDL [Mass/Vol] 73 mg/dL >40 [facility] Comment on above: The drugs N-Acetylcy steine and Metamizole may falsely depress this assay. Reference Range HDL <40 mg/dL Low HDL Cholesterol HDL >or= 60 mg/dL High HDL Cholesterol Cholesterol in LDL [Mass/Vol] 136 mg/dL 0-130 [facility] CO2 [Moles/Vol] 27.0 mmol/L 21.0-32.0 [facility] Globulin (S) [Mass/Vol] 3.2 g/dL 2.2-4.2 [facility] Urea nitrogen/Creatinine [Mass ratio] 21.4 mg/mg 10-20 [facility] Laboratory - Hematology and Cell countsOrdered By: Edwar Campbell on 08-17-2023 MCH (RBC) [Entitic mass] 31.2 pg 27.0-32.0 [facility] MCHC (RBC) [Mass/Vol] 32.6 g/dL 32-36 [facility] Nucleated RBC/100 WBC (Bld) [Ratio] 0 % 0-5 [facility] Platelet mean volume (Bld) [Entitic vol] 10.0 fL 6.2-12.0 [facility] Platelets (Bld) [#/Vol] 224 10*3/uL 150-450 [facility] Lipid Profileon 08-17-2023 Cholesterol [Mass/Vol] 225 mg/dL High 200 [facility] Comment on above: Order Comment: Order Date: 08/17/23 Order Info: [id number] - CMP Order Info: [id number] - LIPID Order Info: [id number] - PSA Result Comment: <200 mg/dL Desirable 200-240 mg/dL Borderline >240 mg/dL High Risk Performed By: #### L 500.4050, L501.9910, L500.4100, L100.0100 #### [facility] [address] [place] [address]. [place], [address] Cholesterol in HDL [Mass/Vol] 73 mg/dL Normal [facility] Comment on above: Order Comment: Order Date: 08/17/23 Order Info: [id number] - CMP Order Info: [id number] - LIPID Order Info: [id number] - PSA Result Comment: The drugs N-Acetylcysteine and Metamizole may falsely depress this assay. Reference Range HDL <40 mg/dL Low HDL Cholesterol HDL >or= 60 mg/dL High HDL Cholesterol Performed By: #### L 500.4050, L501.9910, L500.4100, L100.0100 #### [facility] [address] [place], [address] Cholesterol in LDL [Mass/Vol] 136 mg/dL High 0-130 [facility] Comment on above: Order Comment: Order Date: 08/17/23 Order Info: [id number] - CMP Order Info: [id number] - LIPID Order Info: [id number] - PSA Performed By: #### L 500.4050, L501.9910, L500.4100, L100.0100 #### [facility] [address] [place], [address] Cholesterol in VLDL [Mass/Vol] 16 mg/dL Normal 5-40 [facility] Comment on above: Order Comment: Order Date: 08/17/23 Order Info: [id number] - CMP Order Info: [id number] - LIPID Order Info: [id number] - PSA Performed By: #### L 500.4050, L501.9910, L500.4100, L100.0100 #### [facility] [address] [place], [address] Triglyceride [Mass/Vol] 78 mg/dL Normal [facility] Comment on above: Order Comment: Order Date: 08/17/23 Order Info: [id number] - CMP Order Info: [id number] - LIPID Order Info: [id number] - PSA Result Comment: The drugs N-Acetylcysteine and Metamizole may falsely depress this assay. Serum Triglycerides Reference Interval Normal <150 mg/dL Borderline high 150 - 199 mg/dL High 200 - 499 mg/dL Very High > or = 500 mg/dL Performed By: #### L 500.4050, L501.9910, L500.4100, L100.0100 #### [facility] [address] [place], [address] No Panel InformationOrdered By: Edwar Campbell on 08-17-2023 Estimated GFR (MDRD) Amer 104 mL/min >60 [facility] Comment on above: GFR Calc Estimated GFR (MDRD) Non-Af Amer 86 mL/min >60 [facility] Comment on above: Non- GFR Calc Prostate Specific Antigen Screen 2.03 ng/mL 0.00-4.00 [facility] Comment on above: This test was perfor med using the TPSA assay method for the[employer] chemistry system. Values obtained with differentassay methods cannot be used interchangably.When changing PSA assays in the course of monitoring apatient, additional sequential testing should be carriedout to confirm baseline values. VLDL Cholesterol 16 mg/dL 5-40 [facility] PSA,Total - Annual Screenon 08-17-2023 PSA,TOT SCREEN 2.03 ng/mL Normal 0.00-4.00 [facility] Comment on above: Order Comment: Order Date: 08/17/23 Order Info: [id number] - CMP Order Info: [id number] - LIPID Order Info: [id number] - PSA Result Comment: This test was performed using the TPSA assay method for the [employer] chemistry system. Values obtained with different assay methods cannot be used interchangably. When changing PSA assays in the course of monitoring a patient, additional sequential testing should be carried out to confirm baseline values. Performed By: #### L 500.4050, L501.9910, L500.4100, L100.0100 #### [facility] [address] [place], [address] RBC Auto (Bld) [#/Vol]Ordere d By: Edwar Campbell on 08-17-2023 RBC (Bld) [#/Vol] 4.43 10*6/uL 4.6-6.2 [facility] Serum or plasma calcium angel urement (mass/volume)Ordered By: Edwar Campbell on 08-17-2023 Calcium [Mass/Vol] 9.2 mg/dL 8.5-10.1 [facility] Serum or plasma creatinine m easurement (mass/volume)Ordered By: Edwar Campbell on 08-17-2023 Creatinine [Mass/Vol] 0.93 mg/dL 0.70-1.30 [facility] Comment on above: The validity of the calculated GFR & GFRAA in patients over 70 years has not been determined. Clinical correlation is essential. Serum or plasma urea nitroge n measurement (mass/volume)Ordered By: Edwar Campbell on 08-17-2023 Urea nitrogen [Mass/Vol] 20 mg/dL 7-18 [facility] Thin prep Papanicolaou smear with manual screeningOrdered By: Edwar Campbell on 08-17-2023 Thin prep Papanicolaou smear with manual screening 4.1 g/dL 3.2-5.0 [facility] Thin prep Papanicolaou smear with manual screening 25 U/L 15-37 [facility] Thin prep Papanicolaou smear with manual screening 7 5-15 [facility] Absolute lymphocyte counton 03-01-2022 Lymphocytes Auto (Unsp spec) [#/Vol] 1.17 10*3/uL 0.83-4.51 [facility] Work Phone: Basophil percentageon 2021 Basophils/100 WBC (Bld) 0.7 % 0-1 [facility] Work Phone: Bilirubin [Mass/Vol] 0.50 mg/dL 0.20-1.00 [facility] Work Phone: Comment on above: For patients on eltr ombopag therapy, use of Dimension [place] TBIL is not recommended. Chloride [Moles/Vol] 107 mmol/L 98-107 [facility] Work Phone: Cholesterol [Mass/Vol] 238 mg/dL <200 [facility] Work Phone: Comment on above: <200 mg/dL Desirable 200-240 mg/dL Borderline >240 mg/dL High Risk Eosinophils/100 WBC (Bld) 2.0 % 0-5 [facility] Work Phone: [phone] Glucose [Mass/Vol] 96 mg/dL 74-106 [facility] Work Phone: [phone] Neutrophils (Bld) [#/Vol] 2.6 10*3/uL 2.0-7.7 [facility] Work Phone: [phone] Neutrophils/100 WBC (Bld) 58.4 % 47-70 [facility] Work Phone: [phone] Potassium [Moles/Vol] 4.3 mmol/L 3.5-5.1 [facility] Work Phone: [phone] Protein [Mass/Vol] 7.2 g/dL 6.4-8.2 [facility] Work Phone: [phone] Sodium [Moles/Vol] 140 mmol/L 136-145 [facility] Work Phone: [phone] Triglyceride [Mass/Vol] 72 mg/dL <199 [facility] Work Phone: [phone] Comment on above: The drugs N-Acetylcy steine and Metamizole may falsely depress this assay.Serum Triglycerides Reference Interval Normal <150 mg/dL Borderline high 150 - 199 mg/dL High 200 - 499 mg/dL Very High > or = 500 mg/dL WBC (Bld) [#/Vol] 4.5 10*3/uL 4.4-11.0 [facility] Work Phone: [phone] Blood erythrocytes count (nu mber/volume)on 03-01-2022 RBC (Bld) [#/Vol] 4.48 10*6/uL 4.6-6.2 [facility] Work Phone: [phone] Blood hemoglobin measurement (mass/volume)on 03-01-2022 Hemoglobin (Bld) [Mass/Vol] 14.5 g/dL 13.0-16.5 [facility] Work Phone: Blood lymphocytes/100 leukoc yteson 03-01-2022 Lymphocytes/100 WBC (Bld) 26.2 % 19-41 [facility] Work Phone: Blood monocytes/100 leukocyt eson 03-01-2022 Monocytes/100 WBC (Bld) 12.3 % 0-10 [facility] Work Phone: Blood platelet mean volumeon 03-01-2022 Platelet mean volume (Bld) [Entitic vol] 10.0 fL 6.2-12.0 [facility] Work Phone: Determination of erythrocyte mean corpuscular volume (MCV)on 03-01-2022 MCV (RBC) [Entitic vol] 95.1 fL 80-94 [facility] Work Phone: Hematocrit Auto (Bld) [Volum e fraction]on 03-01-2022 Hematocrit (Bld) [Volume fraction] 42.6 % 40-54 [facility] Work Phone: Laboratory - Chemistry and C hemistry - challengeon 03-01-2022 ALP [Catalytic activity/Vol] 41 U/L 45-117 [facility] Work Phone: ALT [Catalytic activity/Vol] 33 U/L 16-61 [facility] Work Phone: CO2 [Moles/Vol] 26.0 mmol/L 21.0-32.0 [facility] Work Phone: Globulin (S) [Mass/Vol] 3.5 g/dL 2.2-4.2 [facility] Work Phone: Urea nitrogen/Creatinine [Mass ratio] 24.5 mg/mg 10-20 [facility] Work Phone: Laboratory - Hematology and Cell countson 03-01-2022 Erythrocyte distribution width (RBC) [Entitic vol] 47.7 fL 35.1-43.9 [facility] Work Phone: Erythrocyte distribution width (RBC) [Ratio] 13.5 % 11.6-14.6 [facility] Work Phone: Immature granulocytes/100 WBC (Bld) 0.400 % 0.0-0.9 [facility] Work Phone: Comment on above: IG% - Immature Granu locytes (promyelocytes, myelocytes and metamyelocytes) > 1% indicates that a LEFT SHIFT is Present. MCH (RBC) [Entitic mass] 32.4 pg 27.0-32.0 [facility] Work Phone: Nucleated RBC/100 WBC (Bld) [Ratio] 0 % 0-5 [facility] Work Phone: MCHC Auto (RBC) [Mass/Vol]on 03-01-2022 MCHC (RBC) [Mass/Vol] 34.0 g/dL 32-36 [facility] Work Phone: No Panel Informationon 03-01 Estimated GFR (MDRD) Amer 99 mL/min >60 [facility] Work Phone: Comment on above: GFR Calc Estimated GFR (MDRD) Non-Af Amer 82 mL/min >60 [facility] Work Phone: Comment on above: Non- GFR Calc Prostate Specific Antigen Screen 1.22 ng/mL 0.00-4.00 [facility] Work Phone: Comment on above: This test was perfor med using the TPSA assay method for [employer] chemistry system. Values obtained with differentassay methods cannot be used interchangably.When changing PSA assays in the course of monitoring apatient, additional sequential testing should be carriedout to confirm baseline values. Platelets bldon 03-01-2022 Platelets (Bld) [#/Vol] 210 10*3/uL 150-450 [facility] Work Phone: Serum or plasma albumin angel urement (mass/volume)on 03-01-2022 Albumin [Mass/Vol] 3.7 g/dL 3.2-5.0 [facility] Work Phone: Serum or plasma albumin/glob ulin mass ratioon 03-01-2022 Albumin/Globulin [Mass ratio] 1.1 {ratio} 0.9-2.4 [facility] Work Phone: Serum or plasma calcium angel urement (mass/volume)on 03-01-2022 Calcium [Mass/Vol] 8.8 mg/dL 8.5-10.1 [facility] Work Phone: Serum or plasma cholesterol in HDL measurement (mass/volume)on 03-01-2022 Cholesterol in HDL [Mass/Vol] 71 mg/dL >40 [facility] Work Phone: Comment on above: The drugs N-Acetylcy steine and Metamizole may falsely depress this assay. Reference Range HDL <40 mg/dL Low HDL Cholesterol HDL >or= 60 mg/dL High HDL Cholesterol Serum or plasma cholesterol in VLDL measurement (mass/volume)on 03-01-2022 Cholesterol in VLDL [Mass/Vol] 14 mg/dL 5-40 [facility] Work Phone: Serum or plasma creatinine m easurement (mass/volume)on 03-01-2022 Creatinine [Mass/Vol] 0.98 mg/dL 0.70-1.30 [facility] Work Phone: Comment on above: The validity of the calculated GFR & GFRAA in patients over 70 years has not been determined. Clinical correlation is essential. Serum or plasma low density lipoprotein (LDL) cholesterol measurement (mass/volume)on 03-01-2022 Cholesterol in LDL [Mass/Vol] 153 mg/dL 0-130 [facility] Work Phone: Serum or plasma urea nitroge n measurement (mass/volume)on 03-01-2022 Urea nitrogen [Mass/Vol] 24 mg/dL 7-18 [facility] Work Phone: Thin prep Papanicolaou smear with manual screeningon 03-01-2022 Thin prep Papanicolaou smear with manual screening 25 U/L 15-37 [facility] Work Phone: Thin prep Papanicolaou smear with manual screening 7 5-15 [facility] Work Phone: NURSING PROGon 03-29-2017 NURSING PROG HNO ID: [id number] thor: Nat Green) Jazmín, RNService: (none)Author Type: Registered NurseType: Nursing Progress NoteFiled: 03/29/2017 9:32 AMNote Text:Patient did not experience a fall prior to discharge.Patient did not experience a burn prior to discharge.Nat Noyola RN [facility] NURSING PROG HNO ID: [id number] thor: Nat Noyola, RNService: (none)Author Type: Registered NurseType: Nursing Progress NoteFiled: 03/29/2017 9:32 AMNote Text:Dr. Sarabia at bedside to review procedure and results with patient andfamily. Nat Noyola RN [facility] NURSING PROG HNO ID: [id number] thor: Imelda Carney Rnice: (none)Author Type: Registered NurseType: Nursing Progress NoteFiled: 03/29/2017 9:31 AMNote Text:Arrived in phase II via cart. Left lateral position. Sedated, butresponds to verbal stimuli. Color normal; skin warm and dry.Respirations wnl and unlabored. Abdomen soft and with + bowel sounds inquads X 4. Family at bedside. Patient resting comfortably. . Nat Noyola RN [facility] NURSING PROG HNO ID: [id number] thor: Siobhan Green) Imelda Ferrellice: NursingAuthor Type: Registered NurseType: Nursing Progress NoteFiled: 03/29/2017 8:25 AMNote Text:Preoperative order for IV Antibiotic Prophylaxis is N/A.Patient did not experience a fall within the Intraoperative proceduralarea.Patient did not experience a burn within the Intraoperative proceduralarea.Siobhan Ferrell RN [facility] NURSING PROG HNO ID: [id number] thor: Imelda Carney Rnice: (none)Author Type: Registered NurseType: Nursing Progress NoteFiled: 03/29/2017 8:00 AMNote Text:[facility] PRE-OP NURSING HAND OFF NOTESBAR Hand off given to Siobhan Ferrell RN.Hand off was communicated verbally and at the patient's bedside and allquestions were answered. FALLS/BURNSPatient did not experience a fall within the Preoperative area.Patient did not experience a burn within the Preoperative area.Nat Noyola RN [facility] NURSING PROG HNO ID: [id number] thor: SANKET Claros Rnervice: NursingAuthor Type: Registered NurseType: Nursing Progress NoteFiled: 03/29/2017 7:10 AMNote Text:PRE OP LEARNING ASSESSMENTTOPIC: Survival Skills: GI PROCEDURES: ColonoscopyREADINESS TO LEARNCOGNITIVE ABILITY: Alert and orientedMOTIVATION TO LEARN: EagerInterestedFAMILY SUPPORT: High - Very involved in pt carePATIENT LEARNS BEST BY: Individual InstructionWritten Instruction - Hand-outsVerbal InstructionFACTORS AFFECTING LEARNING: NonePHYSICAL LIMITATIONS AFFECTING LEARNING: NoneElectronically Signed By: Jenn Brewer RN [facility]2017 PT ED HNO ID: [id number] thor: Nat (Rn) SANKET Noyolaervice: (none)Author Type: Registered NurseType: Patient EducationFiled: 03/29/2017 9:30 AMNote Text:POST OP LEARNING RESPONSEINSTRUCTION PROVIDED TO: Patient and family memberMETHOD OF INSTRUCTION: Individual instructionWritten instruction - handoutsVerbal instructionPATIENT / FAMILY RESPONSE: Information received as demonstrated byinterest and questionsFOLLOW-UP PLAN: Complete - No need for follow-up; repeat colonoscopy inten yearsSUPPLEMENTAL MATERIAL: Procedure discharge instructionsREFERRAL (RECOMMENDATION): NoneElectronically Signed By: Nat Noyola RN In Department: [facility] HISTORY PHYSICALon 7 HISTORY PHYSICAL HNO ID: [id number] thor: Lucero Lazaro: (none)Author Type: PhysicianType: HANDPFiled: 03/29/2017 7:22 AMNote Text:Chief Complaint: Here for screening for colon cancer via colonoscopyHistory of Present Illness:61 y/o WM presents for screening for colon cancer via colonoscopyDenies any blood in stools.Denies changes in bowel habits.Denies abdominal pain.Had previous colonoscopy 10 years ago.Denies weight loss.Past Medical History:Mixed hyperlipidemiaPast Surgical History:Right leg fracture repairMastoidectomyPilonidal cyst surgeryLaminectomy, lumbarOral surgerycolonoscopyMedications: ibuprofenAllergies:No known drug allergiesReview of Systems: General - denies fevers, denies anorexia Cardiovascular ? denies chest pain Pulmonary ? denies shortness of breath, denies coughing up blood Gastrointestinal ? denies abdominal pain, denies blood in stools Neurological ? denies seizures Genitourinary ? denies blood in urine, denies burning with urination Hematological ? denies spontaneous/prolonged bleeding Skin ? denies nonhealing skin wounds Musculoskeletal ? denies history of fractures Endocrine ? denies diabetes Psychological ? denies hallucinationsPhysical examination: Vital signs in chart, reviewed and noted by meGeneral ? WD/WN WM in no apparent distress, alert and oriented Head ? Normocephalic. EOM intact with sclera clear. Mouth with mucusmembranes moist. Neck - supple with no jugular venous distention noted. Trachea ismidline. Lungs ? clear to auscultation. Normal breath sounds. [place]/rhonchi/wheezing noted. Heart ? normal S1 and S2 auscultated. No rubs/clicks/murmurs noted.Regular rate. Abdomen ? soft and benign. Normal bowel sounds Extremities ? no calf tenderness noted. No pitting edema noted. Skin ? Normal skin integrity. Neurological ? non focal Psych ? calm and appropriateImpression: screening for colon cancer via colonoscopyDiscussion/Plan/Rec ommendations:I have discussed the above with the patient.I have offered colonoscopyI have explained the procedure to the patient.I have counseled the patient as to the risks of the procedure, includingbut not limited to: infection, bleeding, injury to any intrabdominalorgans such as liver/spleen, perforation of the GI tract, inability tocomplete the procedure, complications of anesthesia, etc. ? the patientunderstands.The patient wishes to proceed.I have answered all questions to the patient?s satisfaction and thepatient has no further questions. Normal [facility] HOSPon 03-12-2017 HOSP Patient:Joseph Bird MRN: Height:5' 8(1.727 m)Weight:196 lb 3.4 oz (89 kg)Outpatient Medications as of 03/29/17:MELATONIN 5 MG TABMULTIVITAMIN TABIBUPROFEN 200 MG TABAdmission/Clinic Administered Medications as of 03/29/17:lactated ringers infusionProblem List:Other and unspecified hyperlipidemia [E78.5]Insomnia [G47.00]Onychomycosis [B35.1]Allergies:No Known AllergiesDate Verified:03/29/17Lab ValuesNo results within the last 30 days for the following basenames: K,HCTProgress Notes ([facility]):Aj Marino Surg Coord 03/12/2017 4:37 PM SignedPatient scheduled [id number] OPEN ACCESS QUESTIONNAIRE 1. Are you or could you be ? No 2. Are you currently having any stomach/gastrointestinal issues at this timesuch as constipation, diarrhea, abdominal pain, rectal bleeding etc?No 3. Do you have an implanted device such as a defibrillator, pacemaker,Cardiac Stent or deep brain stimulation device? No 4. Do you have any new or past cardiac (heart) or pulmonary (lung) issues?No 5. Is the patient's BMI 40 or greater? No: There is no height or weight onfile to calculate BMI. . Last Wt10/05/14 : 89.9 kg (198 lb 3.2 oz) Last Ht10/05/14 : 172.7 cm (5' 8) 6. Have you had difficulty with prior sedations or complications with otherprocedures ? No 7. Have you had difficulty with anesthesia previously re:? Difficult intubation? No? Other difficulty or allergic reaction to anesthesia other than post op N/V? No 8. Do you currently use oxygen or a breathing machine at night? No 9. Do you take any narcotics, depression or anti-Anxiety medications or 3 ormore prescription drugs on a daily basis? No10. Do you use any illegal or recreational drugs? No11. Have you been hospitalized in the past 6 weeks? No12. Are you on dialysis or have Chronic Kidney Disease? No13. Have you been diagnosed with chronic liver disease such as hepatitis orcirrhosis? No14. Do you have a seizure disorder? No15. Do you have difficulty swallowing? No16. Do you have ulcerative colitis or Crohn's disease? No17. Do you take any Blood thinners, including Aspirin or fish oil? No18. Do you have any blood disorders (re:hemophiliac)? No19. Are you Diabetic? No20. Any other important health information we should be made aware of prior toyour colonoscopy? NoChecklist: Prior to closing the encounter:? Complete questionnaire: Yes? Confirm Prep order has been Ordered/Pended: Yes.? Patient's procedure could be delayed if not given the script for the prep.Please ensure the prep is escripted to pharmacy or printed. Instructions for theprep will print upon filing or pending this smartset.? Please send all open access questionnaires to [facility] S[facility] Sched Pool#[id number] Marino Surg Coord 03/12/2017 4:25 PM SignedColonoscopy Procedure OverviewPlease Read Prior to the ProcedureWhat is a ColonoscopyA colonoscopy is an outpatient procedure in which the inside of the largeintestine (colon and rectum) is examined. A colonoscopy is commonly used toevaluate gastrointestinal symptoms, such as rectal and intestinal bleeding,abdominal pain, or changes in bowel habits. Colonoscopies are also performed inindividuals without symptoms to check for colorectal polyps or cancer. Ascreening colonoscopy is recommended for anyone 50 years of age and older, andfor anyone with parents, siblings or children with a history of colorectalcancer or polyps.What Happens Before a ColonoscopyTo have a successful colonoscopy, your bowel must be empty so that yourphysician can clearly view the colon. To do this, it is very important to readand follow all of the instructions given to you at least 2 weeks BEFORE yourexam. If your bowel is not empty, yourcolonoscopy will not be successful and may have to berepeated.If you feel nauseated or vomit while taking the bowel preparation, wait 30minutes before drinking more fluid and start with small sips of solution. Someactivity (such as walking) or a few soda crackers may help decrease the nauseayou are feeling. If the nausea persists, please contact nurse monorail crane operator [phone].You may experience skin irritation around the anus due to the passage of liquidstools. To prevent and treat skin irritation, you should:?Apply Vaseline? or Desitin? ointment to the skin around the anus beforedrinking the bowel preparation medications. These products can be purchased [employer].?Wipe the skin after each bowel movement with disposable wet wipes instead oftoilet paper. These are found in the toilet paper area of the store.?Sit in a bathtub filled with warm water for 10 to 15 minutes after you finishpassing a stool; after soaking, blot the skin dry with a soft cloth, applyVaseline? or Desitin? ointment to the anal area, and place a cotton ball justoutside your anus to absorb leaking fluid.What Happens During a ColonoscopyDuring a colonoscopy, an experienced physician uses a colonoscope (a long,flexible instrument about 1/2 inch in diameter) to view the lining of the colon.The colonoscope is inserted into the rectum and advanced through the largeintestine. If necessary during a colonoscopy, small amounts of tissue can beremoved for analysis (a biopsy) and polyps can be identified and entirelyremoved. In many cases, a colonoscopy allows accurate diagnosis and treatment ofcolorectal problems without the need for a major operation.Revised 07/2016 5Colonoscopy under conscious sedation using Golytely. . .?You are asked to wear a hospital gown and an IV will be started.?You are given a pain reliever and a sedative intravenously (in your vein). Youwill feel relaxed and somewhat drowsy.?You will lie on your left side, with your knees drawn up towards your chest.?A small amount of air is used to expand the colon so the physician can see thecolon mccauley.?You may feel mild cramping during the procedure.Cramping can be reduced by taking slow, deep breaths.?The colonoscope is slowly withdrawn while the lining of your bowel is carefullyexamined.?The procedure lasts from 30 minutes to 1 hour.What Happens After a Colonoscopy?You will stay in a recovery room for observation until you are ready fordischarge.?You may feel some cramping or a sensation of having gas, but this quicklypasses.?If sedation has been given, a responsiblefamily member or friend must drive you home.?Avoid alcohol, driving, and operating machinery for24 hours following the procedure.?Unless otherwise instructed, you may immediately return to your normal diet. Werecommend you wait until the day after your procedure to resume normalactivities.?If polyps were removed or a biopsy was taken, the physician performing yourcolonoscopy will tell you when it is safe to resume taking your blood thinners.?If a biopsy was taken or a polyp was removed, you may notice a little amount ofrectal bleeding for1 to 2 days after the procedure. If you have a large amount of rectal bleeding,high or persistent fevers, or severe abdominal pain within the next 2 weeks,please go to your local emergency room and call thephysician who performed your exam.6 Revised 07/2016?Copyright 3915-3941 The [facility]. All rights reserved. Revised 07/2016Health InformationFor Patients and the Sloop Memorial HospitalConscious SedationHow to Prepare for Your Colonoscopy Using Golytely, Nulytely, Trilyte or ColytePreparationsIMPORTANT - Please Read These Instructions at Least 2 Weeks Before YourColonoscopyKey Instructions:?Your bowel must be empty so that your doctor can clearly view your colon.Follow all of the instructions in this handout EXACTLY as they are written.If you do NOT follow the directions for when to start drinking the bowelpreparation (see next page), your colonoscopy WILL be cancelled.?Do NOT eat any solid food the ENTIRE day before your colonoscopy.?Buy your bowel preparation at least 5 days before your colonoscopy.?Do NOT mix the solution until the day before your colonoscopy.Designated Marketing Graphics Specialist on the Day of Your ExamA responsible family member or friend MUST come with you to your colonoscopy andRETXIN in the endoscopy area until you aredischarged! You are NOT ALLOWED to drive, takea taxi or bus, or leave the Endoscopy Center ALONE.If you do not have a responsible driver's license reviewing officer (family member or friend) with you totake you home, your exam cannot be done with sedation and will be cancelled.MedicationsSome of the medicines you take may need to be stopped or adjusted before yourcolonoscopy.You MUST call the doctor who ordered any of the following medicines at least 2weeks before your colonoscopy.?Blood thinners -- such as Coumadin? (warfarin), Plavix? (clopidogrel), Ticlid?(ticlopidine hydrochloride), Agrylin? (anagrelide), Xarelto? (Rivaroxaban),Pradaxa? (Dabigatran), Eliquis? (Apixaban), and Effient? (Prasugrel).?Insulin or diabetes pills. Please call the doctor that monitors your glucoselevels. Your insulin dosage may need to be adjusted due to the diet restrictionsrequired with this bowel preparation. (Please bring your diabetes medicines withyou on the day ofyour procedure.)If you take aspirin, take it and ALL other medications prescribed by yourdoctor. On the day of your colonoscopy, take your medications with a sip ofwater.Revised 07/2016 1Five (5) Days Before Your Colonoscopy?Do NOT take medicines that stop diarrhea -- such as Imodium?, Kaopectate?, orPepto Bismol?.?Do NOT take fiber supplements -- such as Metamucil?, Citrucel?, or Perdiem?.?Do NOT take products that contain iron -- such as multi-vitamins -- (the labellists what is in the products).?Do NOT take vitamin E.Buy the prescription bowel preparation solution at your local pharmacy [facility].Three (3) Days Before Your ColonoscopyDo NOT eat high-fiber foods -- such as popcorn, beans, seeds (flax, sunflower,quinoa), multigrain bread, nuts, salad/vegetables, or fresh and dried fruit.One (1) Day Before Your ColonoscopyOnly drink clear liquids the ENTIRE DAY before your colonoscopy. Do NOT eat anysolid foods. Drink at least 8 ounces of clear liquids every hour after wakingup. The clear liquids you can drink include:?water, apple, or white grape juice; broth; coffee ortea (without milk or creamer); clear carbonatedbeverages such as oneil eloisa or lemon-shinnecock soda; Gatorade? or other sportsdrinks (not red);Enmanuel-Aid? or other flavored drinks (not red).You may eat plain jello or other gelatins (not red) or popsicles (not red).Do NOT drink alcohol on the day before or the day of the procedure.2 Revised 07/2016When to Mix and Drink Your Bowel PrepFollow the instructions on the label. After mixing, place the solution in therefrigerator for a couple of hours before drinking. You may add the flavorpacket that came with the bowel preparation. DO NOT add ice, sugar or anyflavorings to the solution.Morning Appointment (Before 12 noon)Step 1.?Start drinking the bowel preparation at 6 PM the evening before yourcolonoscopy. Drink an 8-oz glass of bowel preparation every 10 minutes for atotal of 8 glasses.?You may continue to drink clear liquids until bedtime.Step 2. The day of the colonoscopy (4 hours before your exam).?Drink an 8-oz glass of bowel preparation every 10 minutes for a total of 8glasses.?You may continue to drink clear liquids up to 2 hours before your exam.If you take aspirin, take it and ALL other prescribed medicines with a sip ofwater on the day of your colonoscopy.Afternoon Appointment (After 12 noon)?Start drinking the bowel preparation at 6 AM the day of your colonoscopy. Drinkan 8-oz glass of bowel preparation every 10 minutes. You must finish drinkingthe solution by 9 AM.?You may continue to drink clear liquids up to 2 hours before your exam.If you take aspirin, take it and ALL other prescribed medicines with a sip ofwater on the day of your colonoscopy.Colonoscopy under conscious sedation usingGolytely. .Contact Information: If you are unable to keep your appointment or have anyquestions about the instructions,please call the facility where the procedure is being performed. Call betweenthe hours of 8:00 AM and 5:00 PM. If you are calling after 5:00 PM, please callNurse concierge manager at [phone].[facility] [address] [id number] # [id number] 07/2016 3 Normal [facility] OBSOLETEon 03-12-2017 OBSOLETE Refill (GENSWS) JOSEPH MORGAN ([id number]) 1955 [facility] Time Provider Fjtilmeyar36/2/17 WOOD FIGUEROA) GENSWS During your visit today, we recorded the following information about you:Aj Marino Surg Coord 03/12/2017 4:37 PM SignedPatient scheduled [id number] OPEN ACCESS QUESTIONNAIRE 1. Are you or could you be ? No 2. Are you currently having any stomach/gastrointestinal issues at this timesuch as constipation, diarrhea, abdominal pain, rectal bleedingetc? No 3. Do you have an implanted device such as a defibrillator, pacemaker,Cardiac Stent or deep brain stimulation device? No 4. Do you have any new or past cardiac (heart) or pulmonary (lung) issues?No 5. Is the patient's BMI 40 or greater? No: There is no height or weight onfile to calculate BMI. . Last Wt10/05/14 : 89.9 kg (198 lb 3.2 oz) Last Ht10/05/14 : 172.7 cm (5' 8ANDquot;) 6. Have you had difficulty with prior sedations or complications with otherprocedures ? No 7. Have you had difficulty with anesthesia previously re:? Difficult intubation? No? Other difficulty or allergic reaction to anesthesia other than post op N/V? No 8. Do you currently use oxygen or a breathing machine at night? No 9. Do you take any narcotics, depression or anti-Anxiety medications or 3 ormore prescription drugs on a daily basis? No10. Do you use any illegal or recreational drugs? No11. Have you been hospitalized in the past 6 weeks? No12. Are you on dialysis or have Chronic Kidney Disease? No13. Have you been diagnosed with chronic liver disease such as hepatitis orcirrhosis? No14. Do you have a seizure disorder? No15. Do you have difficulty swallowing? No16. Do you have ulcerative colitis or Crohn's disease? No17. Do you take any Blood thinners, including Aspirin or fish oil? No18. Do you have any blood disorders (re:hemophiliac)? No19. Are you Diabetic? No20. Any other important health information we should be made aware of prior [facility]? NoChecklist: Prior to closing the encounter:? Complete questionnaire: Yes? Confirm Prep order has been Ordered/Pended: Yes.? Patient's procedure could be delayed if not given the script for the prep.Please ensure the prep is escripted to pharmacy or printed. Instructions forthe prep will print upon filing or pending this smartset.? Please send all open access questionnaires to [facility] S[facility] Sched Pool #[id number] Marino Surg Coord 03/12/2017 4:25 PM SignedColonoscopy Procedure OverviewPlease Read Prior to the ProcedureWhat is a ColonoscopyA colonoscopy is an outpatient procedure in which the inside of the largeintestine (colon and rectum) is examined. A colonoscopy is commonly used toevaluate gastrointestinal symptoms, such as rectal and intestinal bleeding,abdominal pain, or changes in bowel habits. Colonoscopies are also performed inindividuals without symptoms to check for colorectal polyps or cancer. Ascreening colonoscopy is recommended for anyone 50 years of age and older, andfor anyone with parents, siblings or children with a history of colorectalcancer or polyps.What Happens Before a ColonoscopyTo have a successful colonoscopy, your bowel must be empty so that yourphysician can clearly view the colon. To do this, it is very important to readand follow all of the instructions given to you at least 2 weeks BEFORE yourexam. If your bowel is not empty, yourcolonoscopy will not be successful and may have to berepeated.If you feel nauseated or vomit while taking the bowel preparation, wait 30minutes before drinking more fluid and start with small sips of solution. Someactivity (such as walking) or a few soda crackers may help decrease the nauseayou are feeling. If the nausea persists, please contact nurse monorail crane operator [phone].You may experience skin irritation around the anus due to the passage of liquidstools. To prevent and treat skin irritation, you should:?Apply Vaseline? or Desitin? ointment to the skin around the anus beforedrinking the bowel preparation medications. These products can be purchased [employer].?Wipe the skin after each bowel movement with disposable wet wipes instead oftoilet paper. These are found in the toilet paper area of the store.?Sit in a bathtub filled with warm water for 10 to 15 minutes after you finishpassing a stool; after soaking, blot the skin dry with a soft cloth, applyVaseline? or Desitin? ointment to the anal area, and place a cotton ball justoutside your anus to absorb leaking fluid.What Happens During a ColonoscopyDuring a colonoscopy, an experienced physician uses a colonoscope (a long,flexible instrument about 1/2 inch in diameter) to view the lining of thecolon. The colonoscope is inserted into the rectum and advanced through thelarge intestine. If necessary during a colonoscopy, small amounts of tissue canbe removed for analysis (a biopsy) and polyps can be identified and entirelyremoved. In many cases, a colonoscopy allows accurate diagnosis and treatmentof colorectal problems without the need for a major operation.Revised 07/2016 5Colonoscopy under conscious sedation using Golytely. . .?You are asked to wear a hospital gown and an IV will be started.?You are given a pain reliever and a sedative intravenously (in your vein). Youwill feel relaxed and somewhat drowsy.?You will lie on your left side, with your knees drawn up towards your chest.?A small amount of air is used to expand the colon so the physician can see thecolon mccauley.?You may feel mild cramping during the procedure.Cramping can be reduced by taking slow, deep breaths.?The colonoscope is slowly withdrawn while the lining of your bowel iscarefully examined.?The procedure lasts from 30 minutes to 1 hour.What Happens After a Colonoscopy?You will stay in a recovery room for observation until you are ready fordischarge.?You may feel some cramping or a sensation of having gas, but this quicklypasses.?If sedation has been given, a responsiblefamily member or friend must drive you home.?Avoid alcohol, driving, and operating machinery for24 hours following the procedure.?Unless otherwise instructed, you may immediately return to your normal diet.We recommend you wait until the day after your procedure to resume normalactivities.?If polyps were removed or a biopsy was taken, the physician performing yourcolonoscopy will tell you when it is safe to resume taking your blood thinners.?If a biopsy was taken or a polyp was removed, you may notice a little amountof rectal bleeding for1 to 2 days after the procedure. If you have a large amount of rectal bleeding,high or persistent fevers, or severe abdominal pain within the next 2 weeks,please go to your local emergency room and call thephysician who performed your exam.6 Revised 07/2016?Copyright 0112-1152 The [facility]. All rights reserved. Revised 07/2016Health InformationFor Patients and the [facility] Memorial HospitalConmsious SedationHow to Prepare for Your Colonoscopy Using Golytely, Nulytely, Trilyte or ColytePreparationsIMPORTANT - Please Read These Instructions at Least 2 Weeks Before YourColonoscopyKey Instructions:?Your bowel must be empty so that your doctor can clearly view your colon.Follow all of the instructions in this handout EXACTLY as they are written.If you do NOT follow the directions for when to start drinking the bowelpreparation (see next page), your colonoscopy WILL be cancelled.?Do NOT eat any solid food the ENTIRE day before your colonoscopy.?Buy your bowel preparation at least 5 days before your colonoscopy.?Do NOT mix the solution until the day before your colonoscopy.Designated Marketing Graphics Specialist on the Day of Your ExamA responsible family member or friend MUST come with you to your colonoscopyand REMAIN in the endoscopy area until you aredischarged! You are NOT ALLOWED to drive, takea taxi or bus, or leave the Endoscopy Center ALONE.If you do not have a responsible driver's license reviewing officer (family member or friend) with you totake you home, your exam cannot be done with sedation and will be cancelled.MedicationsSome of the medicines you take may need to be stopped or adjusted before yourcolonoscopy.You MUST call the doctor who ordered any of the following medicines at least 2weeks before your colonoscopy.?Blood thinners -- such as Coumadin? (warfarin), Plavix? (clopidogrel), Ticlid?(ticlopidine hydrochloride), Agrylin? (anagrelide), Xarelto? (Rivaroxaban),Pradaxa? (Dabigatran), Eliquis? (Apixaban), and Effient? (Prasugrel).?Insulin or diabetes pills. Please call the doctor that monitors your glucoselevels. Your insulin dosage may need to be adjusted due to the dietrestrictions required with this bowel preparation. (Please bring your diabetesmedicines with you on the day ofyour procedure.)If you take aspirin, take it and ALL other medications prescribed by yourdoctor. On the day of your colonoscopy, take your medications with a sip ofwater.Revised 07/2016 1Five (5) Days Before Your Colonoscopy?Do NOT take medicines that stop diarrhea -- such as Imodium?, Kaopectate?, orPepto Bismol?.?Do NOT take fiber supplements -- such as Metamucil?, Citrucel?, or Perdiem?.?Do NOT take products that contain iron -- such as multi-vitamins -- (the labellists what is in the products).?Do NOT take vitamin E.Buy the prescription bowel preparation solution at your local [facility].Three (3) Days Before Your ColonoscopyDo NOT eat high-fiber foods -- such as popcorn, beans, seeds (flax, sunflower,quinoa), multigrain bread, nuts, salad/vegetables, or fresh and dried fruit.One (1) Day Before Your ColonoscopyOnly drink clear liquids the ENTIRE DAY before your colonoscopy. Do NOT eat anysolid foods. Drink at least 8 ounces of clear liquids every hour after wakingup. The clear liquids you can drink include:?water, apple, or white grape juice; broth; coffee ortea (without milk or creamer); clear carbonatedbeverages such as oneil eloisa or lemon-shinnecock soda; Gatorade? or other sportsdrinks (not red);Enmanuel-Aid? or other flavored drinks (not red).You may eat plain jello or other gelatins (not red) or popsicles (not red).Do NOT drink alcohol on the day before or the day of the procedure.2 Revised 07/2016When to Mix and Drink Your Bowel PrepFollow the instructions on the label. After mixing, place the solution in therefrigerator for a couple of hours before drinking. You may add the flavorpacket that came with the bowel preparation. DO NOT add ice, sugar or anyflavorings to the solution.Morning Appointment (Before 12 noon)Step 1.?Start drinking the bowel preparation at 6 PM the evening before yourcolonoscopy. Drink an 8-oz glass of bowel preparation every 10 minutes for atotal of 8 glasses.?You may continue to drink clear liquids until bedtime.Step 2. The day of the colonoscopy (4 hours before your exam).?Drink an 8-oz glass of bowel preparation every 10 minutes for a total of 8glasses.?You may continue to drink clear liquids up to 2 hours before your exam.If you take aspirin, take it and ALL other prescribed medicines with a sip ofwater on the day of your colonoscopy.Afternoon Appointment (After 12 noon)?Start drinking the bowel preparation at 6 AM the day of your colonoscopy.Drink an 8-oz glass of bowel preparation every 10 minutes. You must finishdrinking the solution by 9 AM.?You may continue to drink clear liquids up to 2 hours before your exam.If you take aspirin, take it and ALL other prescribed medicines with a sip ofwater on the day of your colonoscopy.Colonoscopy under conscious sedation usingGolytely. .Contact Information: If you are unable to keep your appointment or have anyquestions about the instructions,please call the facility where the procedure is being performed. Call betweenthe hours of 8:00 AM and 5:00 PM. If you are calling after 5:00 PM, please callNurse concierge manager at [phone].[facility] [address] [place] [address] [phone] # [id number] 07/2016 3Allergies As of Date: 03/12/2017(No Known Allergies)Date Reviewed: 10/05/2014Reviewed by: June Limon Ma - Fully AssessedReason for Visit: Refill Request [94]Primary Visit Diagnosis:Special screening for malignant neoplasms, colon [Z12.11]Order(s):[] peg 3350-electrolytes (COLYTE) 240-22.72-6.72 -5.84 gram solutionTake 4,000 mL by mouth one time only for 1 dose.Disp: 4000 mLRfl: 0 COLONOSCOPY SCRN NOT HIGH RISK [[id number]] Order #: [id number] FUTUREPrescriptions as of 03/12/2017 Sig: PEG 3350 240 GRAM-ELECTROLYTE* Take 4,000 mL by mouth one ti* ESZOPICLONE 2 MG TABLET Take 1 tablet by mouth at bed* * MELATONIN 5 MG TABLET Takes total of 10mg daily. * MULTIVITAMIN TABLET Take one(1) tablet daily. * IBUPROFEN 200 MG TABLET Take 1-2 tablet's) every four*Problem List As Of Date 03/12/2017 Noted Resolved HYPERLIPIDEMIA NEC/NOS [E78.5] INVALID FOR* Insomnia [G47.00] INVALID FOR* More... Onychomycosis [B35.1] INVALID FOR* Other instructions from your clinician: Colonoscopy Procedure Overview Please Read Prior to the Procedure What is a Colonoscopy A colonoscopy is an outpatient procedure in which the inside of the large intestine (colon and rectum) is examined. A colonoscopy is commonly used to evaluate gastrointestinal symptoms, such as rectal and intestinal bleeding, abdominal pain, or changes in bowel habits. Colonoscopies are also performed in individuals without symptoms to check for colorectal polyps or cancer. A screening colonoscopy is recommended for anyone 50 years of age and older, and for anyone with parents, siblings or children with a history of colorectal cancer or polyps. What Happens Before a Colonoscopy To have a successful colonoscopy, your bowel must be empty so that your physician can clearly view the colon. To do this, it is very important to read and follow all of the instructions given to you at least 2 weeks BEFORE your exam. If your bowel is not empty, your colonoscopy will not be successful and may have to be repeated. If you feel nauseated or vomit while taking the bowel preparation, wait 30 minutes before drinking more fluid and start with small sips of solution. Some activity (such as walking) or a few soda crackers may help decrease the nausea you are feeling. If the nausea persists, please contact nurse monorail crane operator at [phone]. You may experience skin irritation around the anus due to the passage of liquid stools. To prevent and treat skin irritation, you should: ?Apply Vaseline? or Desitin? ointment to the skin around the anus before drinking the bowel preparation medications. These products can be purchased at any drugstore. ?Wipe the skin after each bowel movement with disposable wet wipes instead of toilet paper. These are found in the toilet paper area of the store. ?Sit in a bathtub filled with warm water for 10 to 15 minutes after you finish passing a stool; after soaking, blot the skin dry with a soft cloth, apply Vaseline? or Desitin? ointment to the anal area, and place a cotton ball just outside your anus to absorb leaking fluid. What Happens During a Colonoscopy During a colonoscopy, an experienced physician uses a colonoscope (a long, flexible instrument about 1/2 inch in diameter) to view the lining of the colon. The colonoscope is inserted into the rectum and advanced through the large intestine. If necessary during a colonoscopy, small amounts of tissue can be removed for analysis (a biopsy) and polyps can be identified and entirely removed. In many cases, a colonoscopy allows accurate diagnosis and treatment of colorectal problems without the need for a major operation. Revised 07/2016 5 Colonoscopy under conscious sedation using Golytely. . . ?You are asked to wear a hospital gown and an IV will be started. ?You are given a pain reliever and a sedative intravenously (in your vein). You will feel relaxed and somewhat drowsy. ?You will lie on your left side, with your knees drawn up towards your chest. ?A small amount of air is used to expand the colon so the physician can see the colon mccauley. ?You may feel mild cramping during the procedure. Cramping can be reduced by taking slow, deep breaths. ?The colonoscope is slowly withdrawn while the lining of your bowel is carefully examined. ?The procedure lasts from 30 minutes to 1 hour. What Happens After a Colonoscopy ?You will stay in a recovery room for observation until you are ready for discharge. ?You may feel some cramping or a sensation of having gas, but this quickly passes. ?If sedation has been given, a responsible family member or friend must drive you home. ?Avoid alcohol, driving, and operating machinery for 24 hours following the procedure. ?Unless otherwise instructed, you may immediately return to your normal diet. We recommend you wait until the day after your procedure to resume normal activities. ?If polyps were removed or a biopsy was taken, the physician performing your colonoscopy will tell you when it is safe to resume taking your blood thinners. ?If a biopsy was taken or a polyp was removed, you may notice a little amount of rectal bleeding for 1 to 2 days after the procedure. If you have a large amount of rectal bleeding, high or persistent fevers, or severe abdominal pain within the next 2 weeks, please go to your local emergency room and call the physician who performed your exam. 6 Revised 07/2016 ?Copyright 3657-1144 The [facility]. All rights reserved. Revised 07/2016 Health Information For Patients and the Community Conscious Sedation How to Prepare for Your Colonoscopy Using Golytely, Nulytely, Trilyte or Colyte Preparations IMPORTANT - Please Read These Instructions at Least 2 Weeks Before Your Colonoscopy Seo Instructions: ?Your bowel must be empty so that your doctor can clearly view your colon. Follow all of the instructions in this handout EXACTLY as they are written. If you do NOT follow the directions for when to start drinking the bowel preparation (see next page), your colonoscopy WILL be cancelled. ?Do NOT eat any solid food the ENTIRE day before your colonoscopy. ?Buy your bowel preparation at least 5 days before your colonoscopy. ?Do NOT mix the solution until the day before your colonoscopy. Designated Marketing Graphics Specialist on the Day of Your Exam A responsible family member or friend MUST come with you to your colonoscopy and REMAIN in the endoscopy area until you are discharged! You are NOT ALLOWED to drive, take a taxi or bus, or leave the Endoscopy Center ALONE. If you do not have a responsible driver's license reviewing officer (family member or friend) with you to take you home, your exam cannot be done with sedation and will be cancelled. Medications Some of the medicines you take may need to be stopped or adjusted before your colonoscopy. You MUST call the doctor who ordered any of the following medicines at least 2 weeks before your colonoscopy. ?Blood thinners -- such as Coumadin? (warfarin), Plavix? (clopidogrel), Ticlid? (ticlopidine hydrochloride), Agrylin? (anagrelide), Xarelto? (Rivaroxaban), Pradaxa? (Dabigatran), Eliquis? (Apixaban), and Effient? (Prasugrel). ?Insulin or diabetes pills. Please call the doctor that monitors your glucose levels. Your insulin dosage may need to be adjusted due to the diet restrictions required with this bowel preparation. (Please bring your diabetes medicines with you on the day of your procedure.) If you take aspirin, take it and ALL other medications prescribed by your doctor. On the day of your colonoscopy, take your medications with a sip of water. Revised 07/2016 1 Five (5) Days Before Your Colonoscopy ?Do NOT take medicines that stop diarrhea -- such as Imodium?, Kaopectate?, or Pepto Bismol?. ?Do NOT take fiber supplements -- such as Metamucil?, Citrucel?, or Perdiem?. ?Do NOT take products that contain iron -- such as multi-vitamins -- (the label lists what is in the products). ?Do NOT take vitamin E. Buy the prescription bowel preparation solution at your local pharmacy or drugstore pharmacy. Three (3) Days Before Your Colonoscopy Do NOT eat high-fiber foods -- such as popcorn, beans, seeds (flax, sunflower, quinoa), multigrain bread, nuts, salad/vegetables, or fresh and dried fruit. One (1) Day Before Your Colonoscopy Only drink clear liquids the ENTIRE DAY before your colonoscopy. Do NOT eat any solid foods. Drink at least 8 ounces of clear liquids every hour after waking up. The clear liquids you can drink include: ?water, apple, or white grape juice; broth; coffee or tea (without milk or creamer); clear carbonated beverages such as oneil eloisa or lemon-shinnecock soda; Gatorade? or other sports drinks (not red); Enmanuel-Aid? or other flavored drinks (not red). You may eat plain jello or other gelatins (not red) or popsicles (not red). Do NOT drink alcohol on the day before or the day of the procedure. 2 Revised 07/2016 When to Mix and Drink Your Bowel Prep Follow the instructions on the label. After mixing, place the solution in the refrigerator for a couple of hours before drinking. You may add the flavor packet that came with the bowel preparation. DO NOT add ice, sugar or any flavorings to the solution. Morning Appointment (Before 12 noon) Step 1. ?Start drinking the bowel preparation at 6 PM the evening before your colonoscopy. Drink an 8-oz glass of bowel preparation every 10 minutes for a total of 8 glasses. ?You may continue to drink clear liquids until bedtime. Step 2. The day of the colonoscopy (4 hours before your exam). ?Drink an 8-oz glass of bowel preparation every 10 minutes for a total of 8 glasses. ?You may continue to drink clear liquids up to 2 hours before your exam. If you take aspirin, take it and ALL other prescribed medicines with a sip of water on the day of your colonoscopy. Afternoon Appointment (After 12 noon) ?Start drinking the bowel preparation at 6 AM the day of your colonoscopy. Drink an 8-oz glass of bowel preparation every 10 minutes. You must finish drinking the solution by 9 AM. ?You may continue to drink clear liquids up to 2 hours before your exam. If you take aspirin, take it and ALL other prescribed medicines with a sip of water on the day of your colonoscopy.Colonoscopy under conscious sedation using Golytely. . Contact Information: If you are unable to keep your appointment or have any questions about the instructions, please call the facility where the procedure is being performed. Call between the hours of 8:00 AM and 5:00 PM. If you are calling after 5:00 PM, please call Nurse concierge manager at [phone]. [facility] [address] [place] [id number] Index # 23021 Revised 07/2016 3Prescriptions ordered this encounter Disp Refills Start End PEG 3350 240 GRAM-ELECTROLYTES 22.72* 4000* 0 03/12/2017 03/12/2017 Route: ORAL Sig: Take 4,000 mL by mouth one time only for 1 dose. Status:Closed by AJ ARANA on 03/13/17 Normal [facility] Encounters Encounter Date Encounter Type Care Provider Facility Start: 08-17-2023 End: 08-17-2023 Patient encounter procedure [facility] Start: 08-17-2023 End: 08-17-2023 ambulatory Edwar Liu [facility] Work Phone: Start: 03-01-2022 End: 03-01-2022 ambulatory [facility] Work Phone: Start: 03-01-2022 End: 03-01-2022 Patient encounter procedure [facility] Start: 03-29-2017 End: 03-29-2017 Ambulatory LUCERO SARABIA [facility] Payers Date Payer Category Payer Self-pay [id number] 2023 Unknown [id number] Unknown [facility] [id number] Unknown [id number] Social History Date Type Detail Facility [facility]: [facility] Start: 1955 Sex Assigned At Male [facility] Evaluation note Note Date & Type Note Facility Evaluation note No assessment information availa ble [facility] Work Phone: Summary Purpose Family History No Family History Records Found Relationship Condition Age at Onset Recorded Date/T onofre son Myocardial infarction 29 mother Amyotrophic lateral sclerosis Unknown father Chronic myeloid leukemia Unknown Advance Directives No Advanced Directives Records FoundNo Advanced Directives Records Found Additional Source Comments (unrecognized sect ion and content) No Status Records FoundNo Status Records Found INFORMATION SOURCE (unrecogn ized section and content) DATE CREATED AUTHOR 12/04/2017 [facility] DATE CREATED AUTHOR AUTHOR'S SANAROE ATTAMERA 08/24/2023 [facility] Goals (unrecognized section and content) Goals may be documented in a n alternate sectionGoals may be documented in an alternate section Care Teams (unrecognized sec tion and content) Team Status: Active Member Role Status Dates Dr. Edwar Campbell MD Family Provider Active Dr. Edwar Campbell MD Primary Care Provider Active Team Status: Inactive Member Role Status Dates Dr. Edwar Campbell MD Primary Care Provider, Attend ing Provider Active FOR RECORDS PERTAINING TO PATIENTS WHO ARE [...] BE BASED ON THE PRIMARY CLINICAL RECORDS. [employer] provides no warranty or guarantee of the accuracy or completeness of information in this document.
[2025-02-19 07:21] LABS: Hematocrit 41.8 % (40-54); Hemoglobin 14.7 g/dL (13.0-16.5); Immature Granulocytes Count 0.050 X10^3/uL (0.0-0.0); Mean Corp Hgb Conc 35.2 g/dL (32-36); Mean Corpuscular Volume 91.3 fL (80-94); Mean Platelet Vol. 9.6 fl (6.2-12.0); NRBC Flagged by Analyzer 0 % (0-5); Platelet Count 229 K/mm3 (150-450); RBC Distribution Width CV 13.1 % (11.6-14.6); RBC Distribution Width SD 43.6 fl (35.1-43.9); Red Blood Count 4.58 M/mm3 (4.6-6.2); White Blood Count 6.7 K/mm3 (4.4-11.0)
[2025-02-19 08:20] LABS: Anion Gap 12 (5-15); BUN 18 mg/dL (4-19); BUN/Creat Ratio 18.3 RATIO (10-20); Calcium,Total 9.6 mg/dL (7.6-11.0); Carbon Dioxide 24.1 mmol/L (21.0-32.0); Chloride 102 mmol/L (98-108); Glucose 105 mg/dL (70-99); Potassium 4.5 mmol/L (3.3-5.1)
== END | disposition home or self-care (01) ==
PROVIDERS: PCP Family Medicine; Referring Provider Student in an Organized Health Care Education/Training Program; Visit Provider Student in an Organized Health Care Education/Training Program
DX: Z01.818 Encounter for other preprocedural examination (principal)
CPT/HCPCS: 36415; 80048; 85025; 93005